=== PATIENT | male | born 1945 | race Caucasian/White ===

== ENCOUNTER 2017-06-05 16:33 | Emergency (ER) | payer BC ==
[~2017-06-05] VITALS: Ht 177.8 cm; Wt 97.3 kg
[~2017-06-05 16:33] MED LIST: ASPEC325 PO; ATV1 PO; GABA-113 PO; HYDC25 PO; LISI5TAB3 PO
[2017-06-05 16:38] VITALS: TEMP 36.7; Ht 177.8 cm; Wt 97.3 kg
[2017-06-05] MEDS ORDERED: CHOL1000 PO (17:02)
[2017-06-05] MEDS ORDERED: HYDR25TA4 PO (17:02)
[2017-06-05] MEDS ORDERED: MAGNESIUM COMPLEX PO (17:02)
[2017-06-05] MEDS ORDERED: LSN5 PO (17:02)
[2017-06-05] MEDS ORDERED: SULFAMETHOXAZOLE/TRIMETHOPRIM DS 800/160MG TAB PO STA ×2 (17:20)
[2017-06-05] MEDS ORDERED: CEPHALEXIN MONOHYDRATE 250 MG CAP PO STA ×2 (17:20)
[2017-06-05] MEDS ORDERED: EMPTY 8 DRAM VIAL ONE (17:27)
[2017-06-05] MEDS ORDERED: SULF800T23 PO (17:28)
[2017-06-05] MEDS ORDERED: CEPH500C PO (17:28)
[2017-06-05] MEDS ORDERED: DIPHTHERIA/TETANUS/PERTUSSIS 0.5 ML SYR/VIAL IM. ONE (17:30)
--- NOTE | 2017-06-05 17:42 | EMERGENCY ROOM VISIT NOTE ---
History Report prepared by Oniel: Isaias Daniels Under the Supervision of: Dr. Tobias Jacobson M.D. First contact with patient: 17:14 Chief Complaint: WOUND INFECTION Stated Complaint: POSSIBLE INFECTION ON BACK OF HEAD,LUMP/PAINFUL Nursing Triage Summary: Patient ambulatory to triage with a steady and upright gait, states "I have a lump on the back of the left side of my head. My thinks that it is an infection. I got to itching it and pulled a scab off. It is tender and swollen. " Unknown if he has been bitten by anything. History of Present Illness The patient is a 71 year old male who presents to the Emergency Room with complaints of a worsening posterior head infection beginning yesterday. He states that the area is painful to the touch. He states that the area appears to be "rapidly growing". The patient denies any fevers, or chills. He denies noticing any bites. He notes that he has been scratching the area. The patient notes that he was recently on Doxycycline for a left ear infection. He is due for a tetanus injection. Source of History: patient Onset: Yesterday Position: head (posterior) Quality: other (infection) Timing: worsening Associated Symptoms: No fevers, No chills Review of Systems See HPI for pertinent positives & negatives. A total of 10 systems reviewed and were otherwise negative. Past Medical & Surgical Medical Problems: (1) HTN (hypertension) (2) Hx of tonsillectomy (3) Spinal stenosis Family History No pertinent family history stated. Social History Smoking Status: Former Smoker Marital Status: Housing Status: lives with significant other Current/Historical Medications Scheduled Cephalexin Monohydrate (Keflex), 500 MG PO QID Cholecalciferol (Vitamin D3), 1,000 UNITS PO QAM Hydrochlorothiazide (Hctz), 25 MG PO QAM Lisinopril (Lisinopril), 5 MG PO QAM Sulfa/Trimethoprim (Bactrim Ds 800MG/160MG), 1 TAB PO BID [Magnesium Complex], Unknown Dose PO QAM Scheduled PRN Gabapentin (Neurontin), 300 MG PO BID PRN for Pain Allergies Coded Allergies: No Known Allergies (Unverified , 06/05/17) Physical Exam Vital Signs Date Time Temp Pulse Resp B/P (MAP) Pulse Ox O2 Delivery O2 Flow Rate FiO2 06/05/17 16:38 36.7 75 20 162/84 94 Room Air Physical Exam GENERAL: Patient is in no acute distress. HEENT: No acute trauma, normocephalic atraumatic, mucous membranes moist, no nasal congestion, no scleral icterus. 2 cm erythematous firm lesion to the posterior scalp. Tender to palpation. No drainage. No evidence clinically for abscess. Left TM is clear, with some wax in the canal. NECK: No stridor, no adenopathy, no meningismus, trachea is midline. LUNGS: Clear to auscultation bilaterally, no wheeze, no rhonchi, breath sounds equal. HEART: Without murmurs gallops or rubs, regular rate and rhythm. ABDOMEN: Soft, nontender, bowel sounds positive, no hernias, no peritonitis. EXTREMITIES: No cyanosis or edema, full range of motion of all the joints without pain or difficulty, no signs for acute trauma. NEUROLOGIC: Oriented x 3, no acute motor or sensory deficits, no focal weakness. SKIN: No rash, no jaundice, no diaphoresis. Medical Decision & Procedures Medications Administered Medications (Trade) Dose Ordered Sig/Alek Route Start Time Stop Time Status Last Admin Dose Admin Diphtheria/ Pertussis/Tetanus Vacc (Adacel Inj) 0.5 ml ONCE ONCE IM. 06/05/17 17:30 06/05/17 17:31 DC 06/05/17 17:35 0.5 ML Cephalexin Monohydrate (Keflex Cap) 500 mg NOW STAT PO 06/05/17 17:20 06/05/17 17:23 DC 06/05/17 17:33 500 MG Trimethoprim/ Sulfamethoxazole (Septra Ds 800/ 160MG Tab) 1 tab NOW STAT PO 06/05/17 17:20 06/05/17 17:23 DC 06/05/17 17:33 1 TAB Cephalexin Monohydrate (Keflex Cap) 500 mg NOW STAT PO 06/05/17 17:20 06/05/17 17:23 DC 06/05/17 17:34 500 MG Trimethoprim/ Sulfamethoxazole (Septra Ds 800/ 160MG Tab) 1 tab NOW STAT PO 06/05/17 17:20 06/05/17 17:23 DC 06/05/17 17:33 1 TAB ED Course 1715: The patient was evaluated in room D6. A complete history and physical exam was performed. 1720: Ordered Septra Ds 800/160 mg Tab PO, Keflex Cap 500 mg PO, Septra 800/160 mg tab PO, Keflex Cap 500 mg PO. 1730: Ordered Adacel Inj 0.5 mL IM. Reevaluated the patient. Discussed results and discharge instructions: he verbalized understanding and agreement. The patient is ready for discharge. Medical Decision The patient is a 71 year old male who presents to the ED with complaints of a scalp infection. Differential diagnoses considered include abscess, cellulitis , and insect sting/bite. Blood pressure screening: Patient was found to have a slightly elevated blood pressure due to circumstances. I do not believe that the patient requires hypertension monitoring. Medication Reconciliation: I attest that I have personally reviewed the patient' s current medication list. The patient presents with some irritation and soreness to the left posterior scalp. He appears to have a scalp cellulitis. There is no drainage, no evidence clinically for abscess. The patient is not febrile or toxic. He may have been stung by an insect as the area was itchy first, now it is sore. The patient is being placed on Bactrim and Keflex, each for one week. He will follow with his doctor this week, he will return for worsening symptoms, if this does become an abscess, it can then be drained. Impression Primary Impression: Cellulitis of scalp Scribe Attestation The scribe's documentation has been prepared under my direction and personally reviewed by me in its entirety. I confirm that the note above accurately reflects all work, treatment, procedures, and medical decision making performed by me. Departure Information Dispostion Home / Self-Care Prescriptions Cephalexin Monohydrate (Keflex) 500 Mg Cap 500 MG PO QID, #28 CAP Prov: Tobias Jacobson M.D. 06/05/17 Sulfa/Trimethoprim (Bactrim Ds 800MG/160MG) Tab 1 TAB PO BID, #14 TAB Prov: Tobias Jacobson M.D. 06/05/17 Referrals Esthela LAWRENCE M.D. (PCP) Forms HOME CARE DOCUMENTATION FORM, IMPORTANT VISIT INFORMATION, WORK / SCHOOL INSTRUCTIONS Patient Instructions My [facility] Additional Instructions warm compresses to the area bactrim 2x per day for 1 week keflex 4x per day for 1 week see chava caldwell for a recheck this week return for fever or worsening symptoms
[2017-06-05 17:44] VITALS: BP 154/80; PULSE 78; O2SAT 99
== END 2017-06-05 17:46 | disposition home or self-care (01) ==
LOC: C.EDB 16:35 → C.EDD 17:46
DX: L03.811 Cellulitis of head [any part, except face] (principal); I10 Essential (primary) hypertension; M48.00 Spinal stenosis, site unspecified; Z87.891 Personal history of nicotine dependence; Z23 Encounter for immunization

== ENCOUNTER 2018-04-11 01:28 | Emergency (ER) | payer BC ==
[~2018-04-11] VITALS: Ht 177.8 cm; Wt 84.3 kg
[~2018-04-11 01:28] MED LIST changes: -ASPEC325 PO; -ATV1 PO; +CHOL1000 PO; -HYDC25 PO; +HYDR25TA4 PO; -LISI5TAB3 PO; +LSN5 PO; +MAGNESIUM COMPLEX PO
[2018-04-11 01:32] VITALS: TEMP 37; Ht 177.8 cm; Wt 84.3 kg
--- NOTE | 2018-04-11 01:49 | EMERGENCY ROOM VISIT NOTE ---
History Report prepared by Oniel: Joce Toussaint Under the Supervision of: Dr. El Castañeda M.D. First contact with patient: 01:38 Chief Complaint: FLU LIKE SX Stated Complaint: NOT FEELING WELL X 6DYS,EYES DRAINING,CAN'T SLEEP History of Present Illness The patient is a 72 year old male who presents to the Emergency Room with complaints of a constant cough that began five days ago. The patient states that his cough has been productive with mucous but he denies any blood. He reports that he has also been experiencing congestion and epiphora. He reports he has also had a sore throat and ear pain, which he describes as "feeling like I'm underwater". The patient states his symptoms have been accompanied by a fever. The patient states that he drove to visit his son in [place] who was sick recently. He denies any leg swelling and abdominal pain. The patient denies smoking and a history of lung infections. Source of History: patient Onset: five days ago Position: other (global) Quality: other (productive with mucous) Timing: constant Associated Symptoms: + fevers, + sorethroat, No abdominal pain Note: Associated symptoms: ear pain, epiphora, congestion Denies: leg swelling. Review of Systems See HPI for pertinent positives & negatives. A total of 10 systems reviewed and were otherwise negative. Past Medical & Surgical Medical Problems: (1) HTN (hypertension) (2) Hx of tonsillectomy (3) Spinal stenosis Family History Patient reports no known family medical history. Social History Smoking Status: Former Smoker Marital Status: Housing Status: lives with significant other Current/Historical Medications Scheduled Amoxicillin & Pot Clavulanate (Augmentin 875-125 mg), 875 MG PO BID Cholecalciferol (Vitamin D3), 1,000 UNITS PO QAM Erythromycin Opth (Erythromycin Opth), 1 INCH OPB QID Hydrochlorothiazide (Hctz), 25 MG PO QAM Lisinopril (Lisinopril), 5 MG PO QAM Prednisone (Prednisone), 50 MG PO DAILY [Magnesium Complex], Unknown Dose PO QAM Scheduled PRN Gabapentin (Neurontin), 300 MG PO BID PRN for Pain Allergies Coded Allergies: No Known Allergies (Unverified , 04/11/18) Physical Exam Vital Signs Date Time Temp Pulse Resp B/P (MAP) Pulse Ox O2 Delivery O2 Flow Rate FiO2 04/11/18 02:25 87 18 133/73 99 04/11/18 01:32 37.0 92 24 148/62 98 Room Air Physical Exam GENERAL: Patient is uncomfortable appearing and in mild distress. EYES: No scleral icterus, unremarkable pupils. Bilateral purulent conjunctivitis. Pharyngeal erythema. ENT: Mucous membranes moist, no nasal congestion. Erythematous inflamed bulging right TM. Cerumen impaction in left canal. Cannot visualize TM. NECK: No masses appreciated, no meningismus, trachea is midline. RESPIRATORY: No dyspnea. Bilateral crackles at bases. No wheeze, no rhonchi. CARDIOVASCULAR: Regular rate and rhythm. Mild systolic murmur, rubs, gallops appreciated. GASTROINTESTINAL: Abdomen soft, nontender, no peritonitis. Bowel sounds positive. No masses appreciated. BACK: No midline tenderness, no CVA tenderness EXTREMITIES: Normal motion all extremities, no cyanosis, no edema. NEUROLOGIC: Alert and oriented, no acute motor or sensory deficits, no focal weakness, cranial nerves grossly intact. SKIN: No rash, no jaundice, no diaphoresis. Medical Decision & Procedures ER Provider Diagnostic Interpretation: X ray results are stated below per my interpretation: 2 VIEW CHEST: Mild chronic lung disease similar to chest x-ray from several years ago. Atelectasis of right lower lobe. No infiltrate or effusion appreciated. Medications Administered Medications (Trade) Dose Ordered Sig/Alek Route Start Time Stop Time Status Last Admin Dose Admin Amoxicillin/ Clavulanate Potassium (Augmentin Tab) 875 mg ONE ONCE PO 04/11/18 02:15 04/11/18 02:16 DC 04/11/18 02:20 875 MG Prednisone (PredniSONE TAB) 60 mg NOW STAT PO 04/11/18 02:11 04/11/18 02:12 DC 04/11/18 02:20 60 MG Erythromycin (Erythromycin Oph Oint) 1 appln NOW ONCE OPB 04/11/18 02:15 04/11/18 02:16 DC 04/11/18 02:20 1 APPLN Hydrocodone Bit/ Homatropine Methylb (Hycodan Elix Homepack 5/1.5MG/ 5ML) 1 homepack UD ONCE PO 04/11/18 02:15 04/11/18 02:16 DC 04/11/18 02:20 1 HOMEPACK ED Course 0137: The patient was evaluated in room B06. A complete history and physical exam was performed. 1409: I reevaluated the patient and updated him on his results. I discussed the treatment plan and he is agreeable to outpatient treatment for symptoms. The patient is ready for discharge. Medical Decision Differential: Viral, Pharyngitis, Strep, OM, Pneumonia, Influenza, amongst other pathologies entertained. 72 yr old male who contracted URI with conjunctivitis from his grandkids arrives for persistent symptoms not improving now with right ear pain and cough. Lungs clear without clear infiltrate on CXR. Ear with OM on right, and advised this will need recheck as outpatient. Noted systolic murmur which he states has not been mentioned before thus will follow up with PCP regarding it. He is not septic and does not have evidence of bacteremia. Will likely benefit from steroids in addition to the Abx that he needs for OM. With amount of purulence in eyes seems quite reasonable treating with opth abx. Patient comfortable with this plan and will go home with to go [facility] so that he can keep cough under control and get some sleep. Reviewed symptoms requiring RTED and stressed importance of PCP follow up. Of note patient with recent trip south, but he has no hallmarks of PE and I do not feel there is any indication to work up for PE, ACS, Dissection at this time. Medication Reconcilliation Current Medication List: was personally reviewed by me Blood Pressure Screening Patient's blood pressure: Elevated blood pressure Blood pressure disposition: Elevated BP felt to be situational Impression Primary Impression: Upper respiratory infection Additional Impressions: Otitis media of right ear Conjunctivitis, acute, bilateral Systolic murmur Scribe Attestation The scribe's documentation has been prepared under my direction and personally reviewed by me in its entirety. I confirm that the note above accurately reflects all work, treatment, procedures, and medical decision making performed by me. Departure Information Dispostion Home / Self-Care Prescriptions Erythromycin Opth (ERYTHROMYCIN OPTH) 12 Appln/3.5 Gm Oint 1 INCH OPB QID, #1 TUBE Prov: El Castañeda M.D. 04/11/18 Amoxicillin & Pot Clavulanate (Augmentin 875-125 mg) 1 Tab Tab 875 MG PO BID for 10 Days, #20 TAB Prov: El Castañeda M.D. 04/11/18 Prednisone (PREDNISONE) 50 Mg Tab 50 MG PO DAILY for 5 Days, #5 TAB Prov: El Castañeda M.D. 04/11/18 Referrals Esthela LAWRENCE M.D. (PCP) Patient Instructions My [facility] Additional Instructions Rest and keep well hydrated. Use Tylenol as needed for fevers. You have received a narcotic cough medication. These medications may cause drowsiness and should not be used with other sedative medications. Do not drive , drink alcohol, perform dangerous activities, nor make important decisions after taking these medications. vermin exterminator use or inappropriate use may lead to addiction. Follow up with your primary care provider for recheck, and discuss the Systolic Murmur noted on your exam this evening. Return if worsening symptoms, severe pain, passing out, difficulty breathing or other concerns. Problem Qualifiers
[2018-04-11] MEDS ORDERED: AMOX875T PO (02:14)
[2018-04-11] MEDS ORDERED: ERYOPO OPB (02:14)
[2018-04-11] MEDS ORDERED: PRED50TA PO (02:14)
[2018-04-11] MEDS ORDERED: HYCODAN 60ML BOTTLE HOMEPACK PO ONE (02:15)
[2018-04-11] MEDS ORDERED: AMOXICILLIN/CLAVULANATE TAB 875 MG TAB PO ONE (02:15)
[2018-04-11] MEDS ORDERED: ERYTHROMYCIN OP OINT 5 MG/GM 3.5 GM TUBE OPB ONE (02:15)
[2018-04-11 02:25] VITALS: BP 133/73; PULSE 87; O2SAT 99
--- NOTE | 2018-04-11 07:04 | DIAGNOSTIC IMAGING REPORT ---
TWO VIEW CHEST CLINICAL HISTORY: Cough and fever. FINDINGS: PA and lateral chest radiographs are compared to study dated 09/28/2008. The heart is top normal for projection and there is atherosclerotic calcification of the thoracic aorta. The pulmonary vasculature is noncongested. There are foci of bibasilar scarring/atelectasis. No airspace consolidation or pleural effusion is identified. There is no pneumothorax. The skeletal structures are osteopenic. Degenerative change is seen throughout the thoracic spine. IMPRESSION: No active disease in the chest. Electronically signed by: Tobias Post M.D. 04/11/2018 7:02 AM Dictated Date/Time: 04/11/2018 7:01 AM
== END 2018-04-11 02:26 | disposition home or self-care (01) ==
LOC: C.EDB 01:30
DX: J06.9 Acute upper respiratory infection, unspecified (principal); H66.91 Otitis media, unspecified, right ear; H10.33 Unspecified acute conjunctivitis, bilateral; R01.1 Cardiac murmur, unspecified; I10 Essential (primary) hypertension; M48.00 Spinal stenosis, site unspecified; Z87.891 Personal history of nicotine dependence; Z79.899 Other long term (current) drug therapy